=== PATIENT | male | born 1960 | race Hispanic/Latino ===

== ENCOUNTER 2017-05-28 23:23 | Emergency (ER) | payer SELFPAY ==
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
[2017-05-29] MEDS ORDERED: MORPHINE IV ONE (01:23)
[2017-05-29] MEDS ORDERED: ZOFRAN IV ONE (01:23)
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
[2017-05-29] MEDS ORDERED: PHENERGAN PO ONE (02:15)
[2017-05-29] MEDS ORDERED: BOOSTRIX IM ONE (02:29)
[2017-05-29 02:30] VITALS: BP 135/73
== END 2017-05-29 02:39 | disposition home or self-care (01) ==
LOC: ED 23:23
DX: S01.01XA Laceration without foreign body of scalp, initial encounter (principal); S52.121A Displaced fracture of head of right radius, initial encounter for closed fracture; F17.200 Nicotine dependence, unspecified, uncomplicated; W22.01XA Walked into wall, initial encounter; Y93.9 Activity, unspecified; Y92.9 Unspecified place or not applicable; Y99.9 Unspecified external cause status
CPT/HCPCS: 12032; 29105; 70450; 73110; 90471; 90715; 96374; 96375; 99284; J2270; J2405; Q0169

== ENCOUNTER 2017-06-02 06:28 | Emergency (ER) | payer SELFPAY ==
[2017-06-02 06:43] VITALS: BP 142/94
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
[2017-06-02] MEDS ORDERED: CLEOCIN IM ONE (07:47)
[2017-06-02] MEDS ORDERED: TRIPLE ANTIBIOTIC TP ONE (07:47)
== END 2017-06-02 09:10 | disposition home or self-care (01) ==
LOC: ED 06:28
DX: L02.212 Cutaneous abscess of back [any part, except buttock and flank] (principal); M25.531 Pain in right wrist; F17.200 Nicotine dependence, unspecified, uncomplicated; Z71.6 Tobacco abuse counseling; Z91.19 Patient's noncompliance with other medical treatment and regimen
CPT/HCPCS: 96372

== ENCOUNTER 2017-06-09 06:28 | Emergency (ER) | payer SELFPAY ==
[2017-06-09 07:40] VITALS: BP 129/82
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
== END 2017-06-09 08:52 | disposition home or self-care (01) ==
LOC: ED 06:28
DX: Z48.02 Encounter for removal of sutures (principal)

== ENCOUNTER 2017-10-13 09:59 | Emergency (ER) | payer SELFPAY ==
[2017-10-13 10:21] VITALS: BP 129/86
== END 2017-10-13 15:21 | disposition left against medical advice (07) ==
LOC: ED 09:59
DX: Z53.21 Procedure and treatment not carried out due to patient leaving prior to being seen by health care provider (principal)

== ENCOUNTER 2017-10-18 23:37 | Emergency (ER) | payer SELFPAY ==
[2017-10-19 00:40] VITALS: BP 125/80
--- NOTE | 2017-10-19 08:32 | Emergency Department Report ---
- General Chief complaint: Medical Clearance Stated complaint: BUGS ALL OVER Time Seen by Provider: 10/19/17 08:27 Source: patient Mode of arrival: Ambulatory Limitations: No Limitations - History of Present Illness Initial comments: This is a 56-year-old male nontoxic, well nourished in appearance, no acute signs of distress presents to the ED with c/o of erythema and scaly patches in the scalp x1 week. Patient also stated has been itching it for about a week. Patient denies any fever, chills, headache, stiff neck, nausea, vomiting, chest pain, shortness of breathe, numbness, or tingling. PAtient denies any other rash in the body. Patient denies allergies or PMH. MD complaint: rash -: week(s) (1) Location: head Severity: mild Severity scale (0 -10): 4 Quality: burning Consistency: constant Improves with: none Worsens with: none Context: none Associated symptoms: denies other symptoms Treatments Prior to Arrival: none - Related Data Previous Rx's Medication Instructions Recorded Last Taken Type HYDROcodone/APAP 5-325 [[place] 1 each PO Q6H PRN #20 tablet 10/07/14 Unknown Rx 5-325 mg TAB] Levofloxacin [Levaquin] 500 mg PO QDAY #10 tablet 10/07/14 Unknown Rx guaiFENesin ER [Mucinex ER] 600 mg PO BID #20 tablet 10/07/14 Unknown Rx Promethazine [Phenergan TAB] 25 mg PO Q8HR PRN #20 tab 05/29/17 Unknown Rx oxyCODONE /ACETAMINOPHEN [Percocet 1 tab PO Q6HR PRN #14 tablet 05/29/17 Unknown Rx 5/325] Sulfamethoxazole/Trimethoprim 1 each PO BID #20 tablet 06/02/17 Unknown Rx [Bactrim DS TAB] Terbinafine (Nf) [LamiSIL] 250 mg PO QDAY #180 tablet 10/19/17 Unknown Rx Allergies Allergy/AdvReac Type Severity Reaction Status Date / Time No Known Allergies Allergy Verified 09/30/14 21:44 Abscess Boil HPI - HPI Chief Complaint: Medical Clearance Stated Complaint: BUGS ALL OVER Time Seen by Provider: 10/19/17 08:27 Home Medications: Previous Rx's Medication Instructions Recorded Last Taken Type HYDROcodone/APAP 5-325 [[place] 1 each PO Q6H PRN #20 tablet 10/07/14 Unknown Rx 5-325 mg TAB] Levofloxacin [Levaquin] 500 mg PO QDAY #10 tablet 10/07/14 Unknown Rx guaiFENesin ER [Mucinex ER] 600 mg PO BID #20 tablet 10/07/14 Unknown Rx Promethazine [Phenergan TAB] 25 mg PO Q8HR PRN #20 tab 05/29/17 Unknown Rx oxyCODONE /ACETAMINOPHEN [Percocet 1 tab PO Q6HR PRN #14 tablet 05/29/17 Unknown Rx 5/325] Sulfamethoxazole/Trimethoprim 1 each PO BID #20 tablet 06/02/17 Unknown Rx [Bactrim DS TAB] Terbinafine (Nf) [LamiSIL] 250 mg PO QDAY #180 tablet 10/19/17 Unknown Rx Allergies/Adverse Reactions: Allergies Allergy/AdvReac Type Severity Reaction Status Date / Time No Known Allergies Allergy Verified 09/30/14 21:44 ED Review of Systems ROS: Stated complaint: BUGS ALL OVER Other details as noted in HPI Constitutional: denies: chills, fever Eyes: denies: eye pain, eye discharge, vision change ENT: denies: ear pain, throat pain Respiratory: denies: cough, shortness of breath, wheezing Cardiovascular: denies: chest pain, palpitations Endocrine: no symptoms reported Gastrointestinal: denies: abdominal pain, nausea, diarrhea Genitourinary: denies: urgency, dysuria Musculoskeletal: denies: back pain, joint swelling, arthralgia Skin: denies: rash, lesions Neurological: denies: headache, weakness, paresthesias Psychiatric: denies: anxiety, depression Hematological/Lymphatic: denies: easy bleeding, easy bruising ED Past Medical Hx - Past Medical History Previous Medical History?: Yes Additional medical history: pneumonia - Surgical History Past Surgical History?: Yes Additional Surgical History: splenectomy - Social History Smoking Status: Never Smoker - Medications Home Medications: Home Medications Medication Instructions Recorded Confirmed Last Taken Type HYDROcodone/APAP 5-325 [[place] 1 each PO Q6H PRN #20 tablet 10/07/14 Unknown Rx 5-325 mg TAB] Levofloxacin [Levaquin] 500 mg PO QDAY #10 tablet 10/07/14 Unknown Rx guaiFENesin ER [Mucinex ER] 600 mg PO BID #20 tablet 10/07/14 Unknown Rx Promethazine [Phenergan TAB] 25 mg PO Q8HR PRN #20 tab 05/29/17 Unknown Rx oxyCODONE /ACETAMINOPHEN [Percocet 1 tab PO Q6HR PRN #14 tablet 05/29/17 Unknown Rx 5/325] Sulfamethoxazole/Trimethoprim 1 each PO BID #20 tablet 06/02/17 Unknown Rx [Bactrim DS TAB] Terbinafine (Nf) [LamiSIL] 250 mg PO QDAY #180 tablet 10/19/17 Unknown Rx ED Physical Exam - General Limitations: No Limitations General appearance: alert, in no apparent distress - Head Head exam: Present: atraumatic, normocephalic, other (areas of scaly patches with erythema alopecia present in the hair scalp.) - Eye Eye exam: Present: normal appearance, PERRL, EOMI Pupils: Present: normal accommodation - ENT ENT exam: Present: normal exam, normal orophraynx, mucous membranes moist, TM's normal bilaterally, normal external ear exam - Neck Neck exam: Present: normal inspection, full ROM. Absent: tenderness, meningismus, lymphadenopathy, thyromegaly - Respiratory Respiratory exam: Present: normal lung sounds bilaterally. Absent: respiratory distress - Cardiovascular Cardiovascular Exam: Present: regular rate, normal rhythm. Absent: systolic murmur, diastolic murmur, rubs, gallop - GI/Abdominal GI/Abdominal exam: Present: soft, normal bowel sounds - Rectal Rectal exam: Present: deferred - Extremities Exam Extremities exam: Present: normal inspection - Back Exam Back exam: Present: normal inspection - Neurological Exam Neurological exam: Present: alert, oriented X3 - Psychiatric Psychiatric exam: Present: normal affect, normal mood - Skin Skin exam: Present: warm, dry, intact, normal color. Absent: rash ED Course Vital Signs 10/19/17 00:35 Temperature 98 F Pulse Rate 69 Respiratory 18 Rate Blood Pressure 125/80 O2 Sat by Pulse 100 Oximetry - Reevaluation(s) Reevaluation #1: 10/19/17 08:31 Patient is speaking in full sentences with no signs of distress noted. ED Medical Decision Making - Medical Decision Making This is a 56-year-old male that presents with tinea capitis. Patient is stable and was examined by me. Vital signs are stable. Patient denies any issues with liver or PMH. I will treat patient with terbinafine at discharge. Patient was instructed not to consume and alochol while taking medications and to eat fatty foods with medications. Patient was instructed to Follow-up with a primary care doctor in 3-5 days or if symptoms worsen and continue return to emergency room as soon as possible. At time time of discharge, the patient does not seem toxic or ill in appearance. No acute signs of distress noted. Patient agrees to discharge treatment plan of care. No further questions noted by the patient. Critical care attestation.: If time is entered above; I have spent that time in minutes in the direct care of this critically ill patient, excluding procedure time. ED Disposition Clinical Impression: Tinea capitis Disposition: - TO HOME OR SELFCARE Is pt being admited?: No Does the pt Need Aspirin: No Condition: Stable Instructions: Terbinafine (By mouth), Tinea Capitis (ED) Additional Instructions: Follow-up with a primary care doctor in 3-5 days or if symptoms worsen and continue return to emergency room as soon as possible. Do not consume any alcohol while taking medication. Take medication with fatty food such as peanut butter or ice cream. Prescriptions: Terbinafine (Nf) [LamiSIL] 250 mg PO QDAY #180 tablet Referrals: PRIMARY CARE, [Primary Care Provider] - 3-5 Days JHONATAN BARBER MD [Staff Physician] - 3-5 Days [facility] [Outside] - 3-5 Days [facility] [Outside] - 3-5 Days Forms: Work/School Release Form(ED)
== END 2017-10-19 09:18 | disposition home or self-care (01) ==
LOC: ED 23:37
DX: B35.0 Tinea barbae and tinea capitis (principal); Z90.81 Acquired absence of spleen
CPT/HCPCS: 99282

== ENCOUNTER 2018-04-17 21:21 | Emergency (ER) | payer SELFPAY ==
[2018-04-17 21:36] VITALS: BP 131/80
[2018-04-17] MEDS ORDERED: BENADRYL ONE (21:37)
[2018-04-17] MEDS ORDERED: DECADRON ONE (21:42)
[2018-04-17] MEDS ORDERED: BENADRYL IM ONE (21:48)
[2018-04-17] MEDS ORDERED: DECADRON IM ONE (21:53)
[2018-04-17] MEDS ORDERED: REGLAN PO ONE (21:56)
--- NOTE | 2018-04-17 23:27 | XRay Report ---
FINAL REPORT EXAM: XR KNEE 3V LT HISTORY: Left knee pain TECHNIQUE: Left knee three views PRIORS: None. FINDINGS: There is anterior soft tissue swelling along within the pretibial region. No fracture is identified. No dislocation seen. No evidence of joint effusion. Patella demonstrates normal positioning. No acute bony abnormality identified. IMPRESSION: Anterior soft tissue swelling No acute bony abnormality identified
--- NOTE | 2018-04-18 00:16 | Emergency Department Report ---
ED General Adult HPI - General Chief complaint: Animal Bite Stated complaint: INSECT BITE Time Seen by Provider: 04/18/18 00:09 Source: patient Mode of arrival: Ambulatory Limitations: No Limitations - History of Present Illness Initial comments: There is a 57-year-old white male who presents status post yellowjacket sting to throat denies an allergy to same states "it just flew in my mouth" burning itching swelling on presentation Cool all symptoms resolved with Decadron Benadryl Reglan given upon arrival to the ED there is no cough no stridor no shortness of breath no wheezing no nausea vomiting shortness of breath no dizziness no headache no lightheadedness. No swelling Onset/Timin -: hour(s) Radiation: non-radiation Severity scale (0 -10): 3 Quality: burning Consistency: intermittent Worsens with: medication Associated Symptoms: other (swelling ) Treatments Prior to Arrival: none - Related Data Previous Rx's Medication Instructions Recorded Last Taken Type HYDROcodone/APAP 5-325 [[place] 1 each PO Q6H PRN #20 tablet 10/07/14 Unknown Rx 5-325 mg TAB] Levofloxacin [Levaquin] 500 mg PO QDAY #10 tablet 10/07/14 Unknown Rx guaiFENesin ER [Mucinex ER] 600 mg PO BID #20 tablet 10/07/14 Unknown Rx Promethazine [Phenergan TAB] 25 mg PO Q8HR PRN #20 tab 05/29/17 Unknown Rx oxyCODONE /ACETAMINOPHEN [Percocet 1 tab PO Q6HR PRN #14 tablet 05/29/17 Unknown Rx 5/325] Sulfamethoxazole/Trimethoprim 1 each PO BID #20 tablet 06/02/17 Unknown Rx [Bactrim DS TAB] Terbinafine (Nf) [LamiSIL] 250 mg PO QDAY #180 tablet 10/19/17 Unknown Rx EPINEPHrine [Epipen 2-Peter] 0.3 mg IJ PRN PRN #1 auto.injct 04/18/18 Unknown Rx Metoclopramide [Reglan] 10 mg PO TID 7 Days #30 tab 04/18/18 Unknown Rx diphenhydrAMINE [Benadryl CAP] 25 mg PO Q8HR PRN 7 Days #30 04/18/18 Unknown Rx capsule predniSONE [Deltasone] 40 mg PO QDAY 5 Days #10 tab 04/18/18 Unknown Rx Allergies Allergy/AdvReac Type Severity Reaction Status Date / Time No Known Allergies Allergy Verified 09/30/14 21:44 ED Review of Systems ROS: Stated complaint: INSECT BITE Other details as noted in HPI Constitutional: denies: chills, fever Eyes: denies: eye pain, eye discharge, vision change ENT: throat pain Respiratory: denies: cough, shortness of breath, wheezing Cardiovascular: denies: chest pain, palpitations Endocrine: no symptoms reported Gastrointestinal: denies: abdominal pain, nausea, diarrhea Genitourinary: denies: urgency, dysuria Musculoskeletal: denies: back pain, joint swelling, arthralgia Skin: denies: rash, lesions Neurological: denies: headache, weakness, paresthesias Psychiatric: denies: anxiety, depression Hematological/Lymphatic: denies: easy bleeding, easy bruising ED Past Medical Hx - Past Medical History Additional medical history: pneumonia - Surgical History Additional Surgical History: splenectomy - Social History Smoking Status: Former Smoker Substance Use Type: None - Medications Home Medications: Home Medications Medication Instructions Recorded Confirmed Last Taken Type HYDROcodone/APAP 5-325 [[place] 1 each PO Q6H PRN #20 tablet 10/07/14 Unknown Rx 5-325 mg TAB] Levofloxacin [Levaquin] 500 mg PO QDAY #10 tablet 10/07/14 Unknown Rx guaiFENesin ER [Mucinex ER] 600 mg PO BID #20 tablet 10/07/14 Unknown Rx Promethazine [Phenergan TAB] 25 mg PO Q8HR PRN #20 tab 05/29/17 Unknown Rx oxyCODONE /ACETAMINOPHEN [Percocet 1 tab PO Q6HR PRN #14 tablet 05/29/17 Unknown Rx 5/325] Sulfamethoxazole/Trimethoprim 1 each PO BID #20 tablet 06/02/17 Unknown Rx [Bactrim DS TAB] Terbinafine (Nf) [LamiSIL] 250 mg PO QDAY #180 tablet 10/19/17 Unknown Rx EPINEPHrine [Epipen 2-Peter] 0.3 mg IJ PRN PRN #1 auto.injct 04/18/18 Unknown Rx Metoclopramide [Reglan] 10 mg PO TID 7 Days #30 tab 04/18/18 Unknown Rx diphenhydrAMINE [Benadryl CAP] 25 mg PO Q8HR PRN 7 Days #30 04/18/18 Unknown Rx capsule predniSONE [Deltasone] 40 mg PO QDAY 5 Days #10 tab 04/18/18 Unknown Rx ED Physical Exam - General Limitations: No Limitations General appearance: alert, in no apparent distress - Head Head exam: Present: atraumatic, normocephalic, normal inspection - Eye Eye exam: Present: PERRL, EOMI Pupils: Present: normal accommodation - ENT ENT exam: Present: normal orophraynx, mucous membranes moist, TM's normal bilaterally, normal external ear exam - Expanded ENT Exam Expanded Mouth exam: Present: normal external inspection, tongue normal. Absent: drooling, trismus, muffled voice, tongue elevation, laceration Teeth exam: Present: normal inspection Throat exam: Positive: normal inspection, tonsillar erythema. Negative: tonsillomegaly, tonsillar exudate, R peritonsillar mass, L peritonsillar mass - Neck Neck exam: Present: normal inspection, full ROM. Absent: tenderness, meningismus, lymphadenopathy, thyromegaly - Respiratory Respiratory exam: Present: normal lung sounds bilaterally, chest wall tenderness. Absent: respiratory distress, wheezes, rhonchi - Cardiovascular Cardiovascular Exam: Present: regular rate, normal rhythm. Absent: systolic murmur, diastolic murmur, rubs, gallop - GI/Abdominal GI/Abdominal exam: Present: soft, normal bowel sounds. Absent: distended, tenderness, guarding, rebound, rigid, organomegaly, mass, pulsatile mass, hernia - Rectal Rectal exam: Present: deferred - Extremities Exam Extremities exam: Present: normal inspection - Back Exam Back exam: Present: normal inspection - Neurological Exam Neurological exam: Present: alert, oriented X3 - Psychiatric Psychiatric exam: Present: normal affect, normal mood - Skin Skin exam: Present: warm, dry, intact, normal color. Absent: rash ED Course Vital Signs 04/17/18 21:29 Temperature 98.8 F Pulse Rate 92 H Respiratory 16 Rate Blood Pressure 131/80 O2 Sat by Pulse 98 Oximetry ED Medical Decision Making - Medical Decision Making All symptoms resolved at this time patient appears well and nontoxic Respiratory distress respirations even and nonlabored no stridor no wheezing or use of accessory muscles plan DC to home with prescription for prednisone and Benadryl Reglan and EpiPen patient given EpiPen instructions to follow with PCP in 2-3 days , pt given strict instructions to return to ED if symptoms worsen patient verbalizes understanding and agreement with discharge plan will be discharged DC'd to home in stable condition at this time Critical care attestation.: If time is entered above; I have spent that time in minutes in the direct care of this critically ill patient, excluding procedure time. ED Disposition Clinical Impression: Allergic reaction to insect sting Qualifiers: Encounter type: initial encounter Injury intent: accidental or unintentional Qualified Code(s): T63.481A - Toxic effect of venom of other arthropod, accidental (unintentional), initial encounter Disposition: DC-01 TO HOME OR SELFCARE Is pt being admited?: No Does the pt Need Aspirin: No Condition: Good Prescriptions: diphenhydrAMINE [Benadryl CAP] 25 mg PO Q8HR PRN 7 Days #30 capsule PRN Reason: allergies EPINEPHrine [Epipen 2-Peter] 0.3 mg IJ PRN PRN #1 auto.injct PRN Reason: severe allergic reaction Metoclopramide [Reglan] 10 mg PO TID 7 Days #30 tab predniSONE [Deltasone] 40 mg PO QDAY 5 Days #10 tab Referrals: PRIMARY CARE, [Primary Care Provider] - 3-5 Days Time of Disposition: 00:27
== END 2018-04-18 00:27 | disposition home or self-care (01) ==
LOC: ED 21:21
DX: T63.481A Toxic effect of venom of other arthropod, accidental (unintentional), initial encounter (principal); Z87.891 Personal history of nicotine dependence; Y92.89 Other specified places as the place of occurrence of the external cause
CPT/HCPCS: 73562; 96372; 99283; J1100; J1200; J2930

== ENCOUNTER 2018-04-19 22:08 | Emergency (ER) | payer SELFPAY ==
[2018-04-19 23:03] VITALS: BP 134/77
== END 2018-04-20 00:45 | disposition left against medical advice (07) ==
LOC: ED 22:08
DX: M25.561 Pain in right knee (principal); Z53.21 Procedure and treatment not carried out due to patient leaving prior to being seen by health care provider

== ENCOUNTER 2018-04-20 09:12 | Emergency (ER) | payer SELFPAY ==
[2018-04-20 09:20] VITALS: BP 133/93
== END 2018-04-20 10:00 | disposition left against medical advice (07) ==
LOC: ED 09:12
DX: M25.562 Pain in left knee (principal); Z53.21 Procedure and treatment not carried out due to patient leaving prior to being seen by health care provider

== ENCOUNTER 2018-04-21 00:38 | Emergency (ER) | payer SELFPAY ==
[2018-04-21 01:08] VITALS: BP 129/108
== END 2018-04-21 01:39 | disposition left against medical advice (07) ==
LOC: ED 00:38
DX: M25.562 Pain in left knee (principal); Z79.899 Other long term (current) drug therapy; Z53.21 Procedure and treatment not carried out due to patient leaving prior to being seen by health care provider
CPT/HCPCS: 82962

== ENCOUNTER 2018-04-23 01:49 | Emergency (ER) | payer SELFPAY ==
--- NOTE | 2018-04-23 06:25 | Emergency Department Report ---
ED Extremity Problem HPI - General Chief complaint: Extremity Injury, Lower Stated complaint: LEFT FOOT, ANKLE, AND KNEE PAIN Time Seen by Provider: 04/23/18 06:18 Source: patient Mode of arrival: Ambulatory Limitations: No Limitations - History of Present Illness Initial comments: 57-year-old male comes to the emergency room complaining of left leg knee and ankle pain and swelling. 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 Patient denies any fever or chills no nausea no vomiting. Patient was recently seen here on 04/17/2018 and had an x-ray done. Patient's been here 04/18/2018 as well as 04/20/2018. MD Complaint: extremity pain, extremity swelling -: week(s) (1) Location: left, lower extremity History of Same: Yes -: Yes arthralgia Severity scale (0 -10): 9 Quality: burning, aching, sharp Consistency: constant Improves with: elevation Worsens with: walking Associated Symptoms: denies other symptoms - Related Data Previous Rx's Medication Instructions Recorded Last Taken Type HYDROcodone/APAP 5-325 [[place] 1 each PO Q6H PRN #20 tablet 10/07/14 Unknown Rx 5-325 mg TAB] Levofloxacin [Levaquin] 500 mg PO QDAY #10 tablet 10/07/14 Unknown Rx guaiFENesin ER [Mucinex ER] 600 mg PO BID #20 tablet 10/07/14 Unknown Rx Promethazine [Phenergan TAB] 25 mg PO Q8HR PRN #20 tab 05/29/17 Unknown Rx oxyCODONE /ACETAMINOPHEN [Percocet 1 tab PO Q6HR PRN #14 tablet 05/29/17 Unknown Rx 5/325] Terbinafine (Nf) [LamiSIL] 250 mg PO QDAY #180 tablet 10/19/17 Unknown Rx EPINEPHrine [Epipen 2-Peter] 0.3 mg IJ PRN PRN #1 auto.injct 04/18/18 Unknown Rx Metoclopramide [Reglan] 10 mg PO TID 7 Days #30 tab 04/18/18 Unknown Rx diphenhydrAMINE [Benadryl CAP] 25 mg PO Q8HR PRN 7 Days #30 04/18/18 Unknown Rx capsule predniSONE [Deltasone] 40 mg PO QDAY 5 Days #10 tab 04/18/18 Unknown Rx Ibuprofen [Motrin 800 MG tab] 800 mg PO Q8HR PRN #30 tablet 04/23/18 Unknown Rx Sulfamethoxazole/Trimethoprim 1 each PO BID #20 tablet 04/23/18 Unknown Rx [Bactrim DS TAB] Allergies Allergy/AdvReac Type Severity Reaction Status Date / Time No Known Allergies Allergy Verified 04/21/18 01:04 ED Review of Systems ROS: Stated complaint: LEFT FOOT, ANKLE, AND KNEE PAIN Other details as noted in HPI Constitutional: denies: chills, fever Eyes: denies: eye pain, eye discharge, vision change ENT: denies: ear pain, throat pain Respiratory: denies: cough, shortness of breath, wheezing Cardiovascular: denies: chest pain, palpitations Endocrine: no symptoms reported Gastrointestinal: denies: abdominal pain, nausea, diarrhea Genitourinary: denies: urgency, dysuria Musculoskeletal: arthralgia Skin: rash (plan left knee) Neurological: denies: headache, weakness, paresthesias ED Past Medical Hx - Past Medical History Additional medical history: pneumonia - Surgical History Additional Surgical History: splenectomy. lung collapse - Social History Smoking Status: Former Smoker Substance Use Type: None - Medications Home Medications: Home Medications Medication Instructions Recorded Confirmed Last Taken Type HYDROcodone/APAP 5-325 [[place] 1 each PO Q6H PRN #20 tablet 10/07/14 Unknown Rx 5-325 mg TAB] Levofloxacin [Levaquin] 500 mg PO QDAY #10 tablet 10/07/14 Unknown Rx guaiFENesin ER [Mucinex ER] 600 mg PO BID #20 tablet 10/07/14 Unknown Rx Promethazine [Phenergan TAB] 25 mg PO Q8HR PRN #20 tab 05/29/17 Unknown Rx oxyCODONE /ACETAMINOPHEN [Percocet 1 tab PO Q6HR PRN #14 tablet 05/29/17 Unknown Rx 5/325] Terbinafine (Nf) [LamiSIL] 250 mg PO QDAY #180 tablet 10/19/17 Unknown Rx EPINEPHrine [Epipen 2-Peter] 0.3 mg IJ PRN PRN #1 auto.injct 04/18/18 Unknown Rx Metoclopramide [Reglan] 10 mg PO TID 7 Days #30 tab 04/18/18 Unknown Rx diphenhydrAMINE [Benadryl CAP] 25 mg PO Q8HR PRN 7 Days #30 04/18/18 Unknown Rx capsule predniSONE [Deltasone] 40 mg PO QDAY 5 Days #10 tab 04/18/18 Unknown Rx Ibuprofen [Motrin 800 MG tab] 800 mg PO Q8HR PRN #30 tablet 04/23/18 Unknown Rx Sulfamethoxazole/Trimethoprim 1 each PO BID #20 tablet 04/23/18 Unknown Rx [Bactrim DS TAB] ED Physical Exam - General Limitations: No Limitations General appearance: alert, in no apparent distress - Head Head exam: Present: atraumatic, normocephalic - Expanded Lower Extremity Exam Left Knee exam: Present: full ROM, tenderness, swelling, abrasion. Absent: deformity , crepidus Lower Leg exam: Present: full ROM, tenderness, swelling Ankle exam: Present: full ROM, tenderness, swelling Neuro vascular tendon exam: Present: no vascular compromise Gait: Positive: observed and normal - Back Exam Back exam: Present: normal inspection - Neurological Exam Neurological exam: Present: alert, oriented X3 - Psychiatric Psychiatric exam: Present: normal affect, normal mood - Skin Skin exam: Present: erythema (left knee), abrasion (left knee) ED Course Vital Signs 04/23/18 02:29 Temperature 98.6 F Pulse Rate 92 H Respiratory 18 Rate Blood Pressure 108/72 O2 Sat by Pulse 96 Oximetry ED Medical Decision Making - Medical Decision Making Patient has been evaluated by this provider fast track. Patient will be discharged on antibiotics Bactrim as well as ibuprofen 800 mg every 8 hours as needed for pain. Knee was cleaned and bandaged by nurse. Discussed patient to continue to elevate his leg which would help with the swelling. Discussed the patient to take medication as prescribed. If symptoms persist or gets worse to follow-up with [facility]. Good Rx card given to patient as a resource for medication. Critical care attestation.: If time is entered above; I have spent that time in minutes in the direct care of this critically ill patient, excluding procedure time. ED Disposition Clinical Impression: Knee abrasion Qualifiers: Encounter type: initial encounter Laterality: left Qualified Code(s): S80.212A - Abrasion, left knee, initial encounter Disposition: TO HOME OR SELFCARE Is pt being admited?: No Does the pt Need Aspirin: No Condition: Stable Instructions: Abrasion (ED) Additional Instructions: Please complete antibiotics as prescribed pain medicine as needed follow-up with her primary care provider if symptoms persist or gets worse. Prescriptions: Ibuprofen [Motrin 800 MG tab] 800 mg PO Q8HR PRN #30 tablet PRN Reason: Pain , Severe (7-10) Sulfamethoxazole/Trimethoprim [Bactrim DS TAB] 1 each PO BID #20 tablet Referrals: PRIMARY CARE, [Primary Care Provider] - 3-5 Days
[2018-04-23 06:40] VITALS: BP 121/80
== END 2018-04-23 06:39 | disposition home or self-care (01) ==
LOC: ED 01:49
DX: S80.212A Abrasion, left knee, initial encounter (principal); M25.572 Pain in left ankle and joints of left foot; Z87.891 Personal history of nicotine dependence; X58.XXXA Exposure to other specified factors, initial encounter; Y93.89 Activity, other specified; Y92.89 Other specified places as the place of occurrence of the external cause; Y99.8 Other external cause status
CPT/HCPCS: 99282